=== PATIENT | female | born 1945 ===

== ENCOUNTER 2025-03-22 08:44 | Day surgery (SDC) | payer OTHER ==
[2025-03-15 10:52] VITALS: BP 150/80
[~2025-03-22] VITALS: Ht 147.3 cm; Wt 73.0 kg
[~2025-03-22 08:44] MED LIST: COQ-10100 MG PO; CRESTOR40 MG; HYZAAR 100-251 EACH PO; MAGNESIUM250 M1 PO; OMEGA-31000 MG; VITAMIN C500 M6 PO; VITAMIN D; XALATAN; ZETIA10 MG PO
[2025-03-22] MEDS ORDERED: CLINDAMYCIN PHOSPHATE 150 MG/ML (900mg) ONE (10:06)
[2025-03-22] MEDS ORDERED: TRIAMCINOLONE ACETONIDE 40 MG/ML VIAL ONE ×2 (11:34→11:51)
[2025-03-22] MEDS ORDERED: hydrALAZINE HCL 20 MG VIAL IV ONE ×2 (14:40→17:00)
[2025-03-22] MEDS ORDERED: hydrALAZINE HCL 20 MG VIAL ONE ×2 (14:56→16:36)
[2025-03-22] MEDS ORDERED: ENALAPRILAT DIHYDRATE 1.25 MG/ML VIAL IV ONE (16:25)
[2025-03-22] MEDS ORDERED: MEPERIDINE HCL/PF 25 MG/ML VIAL IV ONE (16:45)
[2025-03-22] MEDS ORDERED: MEPERIDINE HCL 25 MG/ML AMPUL IV ONE (16:55)
== END 2025-03-22 17:40 | disposition home or self-care (01) ==
LOC: CIR.AMB 08:44
PROVIDERS: ATTEND Surgery Surgery of the Hand
DX: M65.842 Other synovitis and tenosynovitis, left hand (principal); Z88.0 Allergy status to penicillin; Z88.6 Allergy status to analgesic agent